=== PATIENT | female | born 1930 | race Caucasian/White ===

== ENCOUNTER → 2016-08-26 | Outpatient (CLI) | payer OTHER, BC ==
[~2016-08-26] MED LIST: AMLODIPINE BESY10 MG PO; AVALIDE 150-121 EACH PO; CALCIUM + VITA1 EACH PO; CELEBREX 200 M200 MG PO; COUMADIN 3 MG TA3 M1 PO; DIGOXIN125 MCG PO; FISH OIL 1,0001 EAC5 PO; FLECAINIDE ACE100 MG PO; FLECAINIDE ACET50 M2 PO; FOSAMAX 70 MG T70 MG PO; JANTOVEN3 MG PO; KEFLEX500 MG PO; LEVOTHROID50 MCG PO; LEVOTHYROXINE0.05 MG PO; LISINOPRIL10 MG PO; LISINOPRIL20 MG PO; LOVASTAT40 PO; MULTIVITAMINS PO; OXYBUTYNIN 5 MG5 M2 PO; PROTONIX40 M1 PO; VITCB500GO PO; VOLTAREN100 GM TP; ZOCOR 20 MG TAB20 M1 PO; [UNRECOGNIZED DRUG - OTHER] PO; [UNRECOGNIZED DRUG - OTHER] PO
== END ==
LOC: ULTRA 16:01
DX: I82.401 Acute embolism and thrombosis of unspecified deep veins of right lower extremity (principal); M79.89 Other specified soft tissue disorders; M79.604 Pain in right leg

== ENCOUNTER → 2016-11-11 | Outpatient (CLI) | payer OTHER, BC | LOC: MRI 14:30 | DX: M51.36 Other intervertebral disc degeneration, lumbar region (principal); M48.06 Spinal stenosis, lumbar region ==

== ENCOUNTER → 2016-11-26 | Outpatient (CLI) | payer OTHER, BC ==
[~2016-11-26] VITALS: Ht 167.6 cm; Wt 65.3 kg
[~2016-11-26] MED LIST changes: +ACETAMINOPHEN-1 EAC1 PO
--- NOTE | ~2016-11-26 | HPC ---
[facility] [address] [place] [address] PAIN MANAGEMENT CONSULTATION Name: AMELIA CHASE Room #: REG [facility] M..#: [id number] Admission: 11/26/16 Attend Phys: Nikko Jeffries DO Discharge: Date of : 31 Report #: [id number] THIS REPORT FOR: //name// CC: Nikko Feliciano MD DATE OF SERVICE: 11/26/2016 REFERRING PHYSICIAN: Jez Feliciano MD CHIEF COMPLAINT: Low back pain, bilateral lower extremity pain and paresthesias. HISTORY OF PRESENT ILLNESS: As you know, the patient is a very pleasant 86-year-old female who has been referred to our service for low back pain, bilateral lower extremity pain suspected to be due to spinal stenosis. The patient has followed with her primary care physician who has referred the patient to our clinic due to failure of responding to conservative medical therapy. The patient has been advised she is suffering from spinal stenosis and that the symptoms she is experiencing bilaterally may be due to this condition. She indicates today pain is periodic, intermittent, momentary, describes pain as shooting, pounding, sharp, stabbing and tender, places current pain score 10/10, daily average at 7-10/10, worst pain has been is 10/10. She indicates standing, walking and doing any activities exacerbate symptoms, sitting and repositioning as well as lying down tends to improve pain. She has been referred to our service to discuss treatment options for lumbar radiculopathy secondary to spinal stenosis. PAST MEDICAL HISTORY: 1. Hypertension. 2. Coronary artery disease. 3. Degenerative joint disease. 4. Osteoarthritis. 5. Chronic anticoagulation. 6. Gastroesophageal reflux disease. 7. Dyslipidemia. 8. Hypothyroidism. PAST SURGICAL HISTORY: None. SOCIAL HISTORY: The patient denies tobacco, alcohol, IV or illicit drug use. She is retired. She retired nearly 25 years ago. She is accompanied by her daughter who is present in room today. REVIEW OF SYSTEMS: Positive for weight gain, decrease in appetite, wearing [facility] [address] [place] [address] PAIN MANAGEMENT CONSULTATION Name: AMELIA CAHSE Room #: REG [facility]..#: [id number] Admission: 11/26/16 Attend Phys: Nikko Jeffries DO Discharge: Date of : 31 Report #: [id number] corrective eyewear, hearing loss with tinnitus, coronary artery disease, loss of appetite, frequent urination, incontinence and dribbling to urine, nocturia, varicose veins, thyroid disease, heat and cold intolerance, phlebitis, low back pain, and bilateral lower extremity pain. All other review of systems negative per 12-point review of systems other than those listed in history of present illness. PAIN IMPACT SCORE: 50/70 indicating severe interference of daily activities secondary to pain. ALLERGIES: No reported allergies. CURRENT MEDICATIONS: Flecainide 50 mg in the morning, 100 mg at night, pantoprazole 40 mg per day, lovastatin 40 mg per day, oxybutynin 5 mg once a day, calcium carbonate 1 tab per day, Avalide 100 mg once a day, and warfarin 3 mg once a day. IMAGING: MRI lumbar spine obtained on 11/11/2016, shows multilevel degenerative changes and disk space narrowing at L3 through L4-L5, tight spinal stenosis at both levels. There is noted facet arthropathy, ligamentum flavum hypertrophy and displaced disks throughout the lumbar region. PHYSICAL EXAMINATION: VITAL SIGNS: Blood pressure 192/100, pulse is 79, respiratory rate 14 and unlabored, the patient is 97% on room air, height 5 feet 6 inches tall, weight 144 pounds, and BMI calculated 23.3. GENERAL: Well-developed, well-nourished, well-hydrated 86-year-old female, appearing her stated age, she is placing current pain score at 10/10. HEENT: Normocephalic and atraumatic. Pupils are equal, round, and reactive to light. Extraocular muscles are intact. Sclerae are nonicteric without injection. Cranial nerves 2-12 are grossly intact. Speech is fluent. LUNGS: Clear. No wheeze, rhonchi, or rales. CARDIOVASCULAR: Regular. No appreciable gallop or rub. ABDOMEN: Soft, nontender, nondistended, normoactive bowel sounds. EXTREMITIES: Show no clubbing, no cyanosis, and no edema. MUSCULOSKELETAL: Lower extremity strength appears equal and symmetrical 5/5, intact to light touch from L1 through S2 dermatomes. Deep tendinous reflexes are symmetrical at patella and Achilles. Ankle clonus negative. Babinski is negative. Seated straight leg raising negative. Supine straight leg raising positive. Fabere's test negative. Modified Gaenslen's positive for axial low back pain. Gait antalgic, but not utilizing an assistive device. ASSESSMENT: 1. Symptomatic lumbar radiculopathy. 2. Severe spinal stenosis of lumbar spine. 3. Displacement of lumbar intervertebral disk with radiculopathy. [facility] [address] [place] [address] PAIN MANAGEMENT CONSULTATION Name: AMELIA CHASE Room #: REG CLJanny Fernandez#: [id number] Admission: 11/26/16 Attend Phys: Nikko Jeffries DO Discharge: Date of : 31 Report #: [id number] 4. Lumbosacral spondylosis with radiculopathy. 5. 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 6. Lumbar degeneration. 7. Chronic intractable pain. PLAN: 1. The patient has been referred to our clinic by her primary care physician for evaluation for a lumbar radiculopathy secondary to spinal stenosis. Given the findings on physical exam, the history she provides, the distribution of symptoms in bilateral nature as well as the findings on MRI , I do believe her symptoms are due to the tight spinal stenosis at the L3-L4 and L4-L5 levels. She does have contribution of axial back pain due to facet arthropathy, but this is a minor portion of the condition. We discussed with the patient treatment options in regards to spinal stenosis and subsequent lumbar radiculopathy. The following was discussed. The patient and I discussed treatment options that would include physical therapy, stretching exercises, and core strengthening. We discussed medication management with addition of a neuropathic pain medication and consistent pain medication for pain control. We discussed epidural injections under fluoroscopic guidance to address lumbar radicular symptoms. We also discussed spinal cord stimulator therapy and surgical options. After reviewing the risks and benefits of all proposed treatment options, the patient chose to undergo epidural injection under fluoroscopic guidance. The patient is on warfarin. She states she has been off the warfarin in appropriate 5 days. She has been off this medication and wishes to undergo the procedure. We did advise the patient to initiate the warfarin therapy again this afternoon and take her normal dosing starting tomorrow. She will remain on the warfarin until we see her back in followup visit in 3 weeks. 2. The patient was advised risks and benefits of a lumbar epidural injection. These risks include, but are not necessarily limited to bleeding, bruising, infection, worsening of pain, no relief of pain, also risk of temporary or permanent muscle weakness, temporary or permanent nerve damage, possible paralysis and . The patient states she understood and wished to proceed. 3. We will see the patient back in followup visit in 3 weeks. At that time, review efficacy of today's epidural injection and determine if a repeat injection might be necessary. 4. We wish to thank Dr. Feliciano for the referral of this patient to our clinic. We will keep you apprised of her response to treatment as we address her lumbar radicular symptoms secondary to spinal stenosis. Again, we wish to thank you for the opportunity to participate in her care. PROCEDURE NOTE DESCRIPTION OF PROCEDURE: L5-S1 interlaminar [place] [address] PAIN MANAGEMENT CONSULTATION Name: AMELIA CHASE Room #: REG NURY Fernandez#: [id number] Admission: 11/26/16 Attend Phys: Nikko Jeffries DO Discharge: Date of : 31 Report #: [id number] fluoroscopic guidance. This is the first procedure of the first series that the patient is undergoing. After obtaining written consent, the patient was taken back to the fluoroscopy suite, placed in a prone position with pillow under the abdomen to decrease lumbar lordosis. The skin overlying the lumbosacral area was then prepped and draped in aseptic fashion. The L5-S1 vertebral interspace was then identified by AP fluoroscopy. The skin and subcutaneous tissue overlying the target site of injection was anesthetized with 3 mL 1% lidocaine. A 20-gauge 3-1/2-inch Tuohy needle was then advanced under fluoroscopic guidance towards the epidural space using a paramedian approach. The epidural space was identified using loss of resistance to air technique. After negative aspiration for heme or cerebrospinal fluid, a total of 1 mL of Omnipaque was injected. A lumbar epidurogram was confirmed using both AP and lateral fluoroscopy. After negative aspiration for heme or cerebrospinal fluid, 5 mL of a solution containing 2 mL 40 mg per mL, 80 mg total triamcinolone, 3 mL lidocaine 1% was injected in increments. Contrast spread was noted posterior epidural space. The needle was then retracted approximately half way and needle tract flushed with 1 mL of 1% lidocaine. Needle was then removed. There were no apparent sensory or motor deficits in the lower extremity following the procedure. A sterile bandage was placed over the injection site. The heart rate, pulse, oximetry and blood pressure were continuously monitored after the procedure. There were no apparent complications. The patient tolerated the procedure well and was carefully escorted to the recovery room in stable condition. There were no apparent complications. After meeting discharge criteria, the patient was then discharged home. By: [id number] Nikko Jeffries DO /nt
[2016-11-26 13:32] LABS: INR 1.2
[2016-11-26 13:37] VITALS: BP 192/100
== END | disposition home or self-care (01) ==
LOC: PAIN 06:56
PROVIDERS: Anesthesiology Pain Medicine
DX: M51.16 Intervertebral disc disorders with radiculopathy, lumbar region (principal); M48.06 Spinal stenosis, lumbar region; M47.27 Other spondylosis with radiculopathy, lumbosacral region; M46.96 Unspecified inflammatory spondylopathy, lumbar region; G89.29 Other chronic pain; I10 Essential (primary) hypertension; I25.10 Atherosclerotic heart disease of native coronary artery without angina pectoris; M19.90 Unspecified osteoarthritis, unspecified site; K21.9 Gastro-esophageal reflux disease without esophagitis; E78.5 Hyperlipidemia, unspecified; E03.9 Hypothyroidism, unspecified; Z79.01 Long term (current) use of anticoagulants; Z79.899 Other long term (current) drug therapy

== ENCOUNTER → 2016-12-24 | Outpatient (CLI) | payer OTHER, BC ==
[~2016-12-24] VITALS: Ht 167.6 cm; Wt 63.9 kg
[~2016-12-24] MED LIST changes: +NEURONTIN 300300 M1 PO
--- NOTE | ~2016-12-24 | HPC ---
[facility] [place] [address] [address] PAIN MANAGEMENT CONSULTATION Name: AMELIA CHASE Room #: REG [facility] M..#: [id number] Admission: 12/24/16 Attend Phys: Nikko Jeffries DO Discharge: Date of : 31 Report #: [id number] THIS REPORT FOR: //name// CC: Nikko Feliciano MD DATE OF SERVICE: 12/24/2016 CHIEF COMPLAINT: Low back pain, bilateral lower extremity pain with paresthesias. HISTORY OF PRESENT ILLNESS: As you know, the patient is a very pleasant 86-year-old female who was referred to our service by Dr. Jez Feliciano for evaluation for suspected lumbar radiculopathy. The patient was seen in consultation per Dr. Feliciano's request on and diagnosed with symptomatic lumbar radiculopathy secondary to the displacement of lumbar intervertebral disk. Due to anticoagulation therapy, the patient had to return in followup visit to discuss other treatment options and to undergo epidural injection under fluoroscopic guidance once she had discontinued her warfarin. She returns today indicating she received not much in the way of improvement in symptoms. She continues to experience pain at a level of 10/10. She returns today in followup visit to discuss options for treatment. ALLERGIES: No reported drug allergies. CURRENT MEDICATIONS: Flecainide, pantoprazole, lovastatin, oxybutynin, calcium carbonate, Avalide, warfarin. SOCIAL HISTORY: The patient denies tobacco, alcohol, IV or illicit drug use. IMAGING: No new imaging available. PHYSICAL EXAMINATION: VITAL SIGNS: Blood pressure 155/75, pulse 72, respiratory rate 14, unlabored. The patient is 95% on room air, height 5 feet 6 inches tall, weight 140 pounds, BMI calculated 22.7. GENERAL: Well developed, well nourished, well-hydrated 86-year-old female appearing stated age. She is placing current pain score at 10/10. HEENT: Normocephalic, atraumatic. Pupils equal, round, reactive to light. Extraocular muscles are intact. Sclerae nonicteric without injection. EXTREMITIES: Show no clubbing, no cyanosis, no edema. MUSCULOSKELETAL: Seated straight leg raising negative. Supine straight leg raising positive. Fabere's test negative. Modified Gaenslen's positive for axial low back pain. Ankle clonus negative. Babinski is negative. [address] [address] PAIN MANAGEMENT CONSULTATION Name: AMELIA CHASE [facility] [id number] Admission: 12/24/16 Attend Phys: Nikko Jeffries DO Discharge: Date of : 31 Report #: [id number] ASSESSMENT: 1. Symptomatic lumbar radiculopathy. 2. Severe and progressively worsening spinal stenosis of lumbar spine. 3. Displacement of lumbar intervertebral disk with radiculopathy. 4. Lumbosacral spondylosis with radiculopathy. 5. Lumbar facet arthropathy. 6. Lumbar degeneration. 7. Chronic intractable pain. PLAN: 1. The patient returns today in followup visit having indicated no improvement in symptoms with epidural injection. We have the patient return today to discuss options for treatment. Given the fact the patient received no real significant long-term improvement with the epidural injection, I would not recommend a repeat at this time. I recommended other treatment options including medication management, spinal cord stimulator therapy and surgical options. After reviewing the risks and benefits of all the proposed treatment options, the patient chose to begin with medical therapy, but also consider a spinal cord stimulator. 2. The patient will be started on gabapentin 300 mg dose 1 tab p.o. at bedtime for 7 nights, then 2 tabs p.o. at bedtime for 7 nights, then 3 tabs p.o. at bedtime. I have given the patient #90 tablets. This is the first initial trial of medication. We may ultimately have to increase this in the daytime hours, but we will see efficacy at followup visit. 3. The patient was given information about spinal cord stimulator today. She will review the spinal cord stimulator information and determine if this is an option she wishes to pursue. The patient was advised if she does wish to pursue this option, she needs to see psychiatry as part of the initial workup. If she is able to pass the psychiatric evaluation without any known psychopathology, we would then have the patient move forward with scheduling of the spinal cord stimulator trial. If this is effective, then we will have the patient have permanent implant as quickly as possible. She will consider this as an option. She was given information both in digital and written form today, contact our clinic in regards to initiation of this treatment option. By: 1615 1805 Nikko Jeffries DO /gaaytri
[2016-12-24 10:23] VITALS: BP 155/75
== END | disposition home or self-care (01) ==
LOC: PAIN 12-17 07:30
DX: M51.16 Intervertebral disc disorders with radiculopathy, lumbar region (principal); M48.06 Spinal stenosis, lumbar region; M47.27 Other spondylosis with radiculopathy, lumbosacral region; M12.88 Other specific arthropathies, not elsewhere classified, other specified site; G89.29 Other chronic pain; Z79.899 Other long term (current) drug therapy; Z98.890 Other specified postprocedural states

== ENCOUNTER 2017-02-16 12:44 | Inpatient (IN) | payer OTHER, BC ==
[~2017-02-16] VITALS: Ht 167.6 cm; Wt 57.2 kg
--- NOTE | ~2017-02-16 | EKG ---
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 : 1930 Requested By: Jose Alberto Velasquez Order Number: [id number] MD: Abel Abel Measurements Intervals [place] Rate: 82 P: 75 [place]: 205 QRS: -80 QRSD: 128 T: 37 QT: 409 QTc: 478 Interpretive Statements Sinus rhythm RBBB and LAFB Compared to ECG 05/10/2015 17:19:58 No significant change was found Electronically Signed On 02-17-2017 16:20:19 CDT by Abel Abel [email or web address] <ELECTRONICALLY SIGNED> By: Abel Abel MD, [facility] 02/17/17 1620 1350 1350 Abel Abel MD, [facility] /EPI
--- NOTE | ~2017-02-16 | D ---
[facility] [place] [address] DISCHARGE SUMMARY Name: AMELIA CHASE Room #: 429-P [facility] IN M.R.#: [id number] Admission: 02/16/17 Attend Phys: Jez Feliciano MD Discharge: 02/21/17 Date of : 31 Report #: [id number] THIS REPORT FOR: //name// CC: Jez Feliciano DATE OF SERVICE: 02/19/2017 ADMITTING DIAGNOSES: Back pain and urinary tract infection. DISCHARGE DIAGNOSES: 1. Spinal stenosis with intractable back pain. 2. Urinary tract infection with Escherichia coli. 3. Weight loss, unexplained. 4. Back pain. 5. Falls. HOSPITAL COURSE: The patient was admitted after experiencing increasing back pain and unable to take care of herself at home. She was also found to have urinary tract infection. This UTI was found to be E. coli. She was started on Rocephin for that empirically and then that was continued once we identified the specific bacteria. It was sensitive to Rocephin. The patient did have a significant weight loss over the past several months, so therefore we undertook a CT scan of the chest, abdomen and pelvis, which did show some atelectasis in the lungs, some benign-looking liver cysts, benign-looking renal cyst. No evidence of any masses that could cause weight loss. She did have a small evidence of some ileus; however, she was eating and drinking and moving her bowels, so we did not opt to treat that. Her back pain did slightly improve with IV pain meds and switching to tizanidine. She had an outpatient appointment scheduled with Dr. Luciano for an epidural injection initially on the . She had been holding her Coumadin for that. We also gave her Lovenox in coverage while she was here. We were able to schedule her appointment with him for the . She was told after discharge to home, so we decided to discharge her to Dr. Luciano for epidural injection and then she will be discharged from there to [facility] for ongoing PT and OT. She will also get antibiotics, Cefdinir 300 mg b.i.d. for 7 more days. She will resume the home meds as listed in the chart otherwise. <ELECTRONICALLY SIGNED> By: Jez Feliciano MD 02/22/17 0843 [id number] 0834 Jez Feliciano MD /nt
--- NOTE | ~2017-02-16 | EKG ---
[address] [employer] 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
[2017-02-16 12:44] VITALS: BP 188/70
[~2017-02-16 12:44] MED LIST changes: -AVALIDE 150-121 EACH PO; +AVALIDE 300-121 EACH PO
[2017-02-16 13:04] LABS: HEMATOCRIT 43.9 % (37.0-47.0); HEMOGLOBIN 14.8 gm/dL (12.0-15.0); MCH 31.3 pg (26.0-34.0); MCHC 33.8 g/dL (28.0-37.0); MCV 92.6 fL (80.0-100.0); RBC 4.74 mil/uL (4.20-5.00); RDW 14.7 % (10.5-14.5); WBC 9.9 thou/uL (4.0-11.0)
[2017-02-16 13:07] LABS: CALCIUM 9.2 mg/dL (8.5-10.1); CREATININE 1.4 mg/dL (0.6-1.0); POTASSIUM 4.2 mmol/L (3.5-5.1)
[2017-02-16 13:15] LABS: INR 1.1; PROTIME 10.9 Seconds (9.3-11.4)
[2017-02-16 14:09] LABS: URINE BILIRUBIN NEGATIVE (Negative); URINE BLOOD NEGATIVE (Negative); URINE COLOR YELLOW; URINE GLUCOSE-RANDOM* NEGATIVE (Negative); URINE KETONES NEGATIVE (Negative); URINE LEUKOCYTES-REFLEX NEGATIVE (Negative); URINE PROTEIN (DIPSTICK) NEGATIVE (Negative); URINE SPECIFIC GRAVITY 1.015 (1.003-1.035); URINE UROBILINOGEN 0.2 E.U./dl (0.2-1.0)
[2017-02-16 14:46] LABS: CASTS None Seen /LPF (None Seen); CRYSTALS None Seen /LPF (None Seen); SQUAMOUS 0-3 Few /LPF (0-3); URINE RBC None Seen /HPF (0-2); URINE WBC-REFLEX 0-5 Rare /HPF (0-5)
[2017-02-16 15:28] VITALS: BP 162/77
[2017-02-16 15:47] VITALS: BP 168/72
[2017-02-16 17:31] VITALS: BP 145/61
[2017-02-16 19:14] VITALS: BP 127/52
[2017-02-17 03:44] VITALS: BP 111/61
[2017-02-17 07:40] VITALS: BP 169/63
[2017-02-17 14:53] LABS: PROTIME 10.6 Seconds (9.3-11.4)
[2017-02-17 15:30] VITALS: BP 119/50
[2017-02-17 19:10] VITALS: BP 129/54
[2017-02-18 04:30] VITALS: BP 145/55
[2017-02-18 07:12] VITALS: BP 176/61
[2017-02-18 11:41] VITALS: BP 111/46
[2017-02-18 15:39] VITALS: BP 108/50
[2017-02-18 20:00] VITALS: BP 100/40
[2017-02-19] VITALS (7 sets, daily range): BP systolic 71–165; BP diastolic 32–63
[2017-02-19] MEDS ORDERED: TIZANIDINE4 MG/1 TA1 PO (07:45)
[2017-02-19] MEDS ORDERED: COLACE 100 MG100 MG PO (07:46)
[2017-02-19] MEDS ORDERED: ACETAMINOPHEN-1 EAC1 PO (07:47)
[2017-02-19] MEDS ORDERED: MIRALAX17 GM PO (07:47)
[2017-02-19] MEDS ORDERED: CEFDINIR300 MG PO (07:53)
[2017-02-19 10:04] LABS: HEMATOCRIT 37.8 % (37.0-47.0); MCH 31.2 pg (26.0-34.0); MCHC 33.5 g/dL (28.0-37.0); MCV 93.1 fL (80.0-100.0); RBC 4.06 mil/uL (4.20-5.00); RDW 14.7 % (10.5-14.5); WBC 7.7 thou/uL (4.0-11.0)
[2017-02-19 10:25] LABS: HEMOGLOBIN 12.6 gm/dL (12.0-15.0)
[2017-02-20 04:00] VITALS: BP 167/76
[2017-02-20] MEDS ORDERED: ACETAMINOPHEN-1 EAC1 PO (08:02)
[2017-02-20 08:10] VITALS: BP 128/49
[2017-02-20 15:20] VITALS: BP 110/50
[2017-02-20 20:31] VITALS: BP 157/87
[2017-02-21 04:19] VITALS: BP 147/59
[2017-02-21 07:40] VITALS: BP 177/74
[2017-02-21] MEDS ORDERED: ENOXAPARIN60 MG/0.1 SUBQ (07:55)
[2017-02-21] MEDS ORDERED: FLECAINIDE ACET50 M1 PO (12:36)
== END 2017-02-21 14:39 | DRG 552 ==
LOC: ER 12:44 → EROBS 15:02 → 4N 15:02 → 4E 15:02 → 4N 15:55 → 4E 02-19 13:02
PROVIDERS: Emergency Medicine; Family Medicine
DX: M48.00 Spinal stenosis, site unspecified (principal); N39.0 Urinary tract infection, site not specified; I10 Essential (primary) hypertension; M19.90 Unspecified osteoarthritis, unspecified site; E78.00 Pure hypercholesterolemia, unspecified; I48.2 Chronic atrial fibrillation; E03.9 Hypothyroidism, unspecified; K59.00 Constipation, unspecified; R00.1 Bradycardia, unspecified; W18.30XA Fall on same level, unspecified, initial encounter; R63.4 Abnormal weight loss; B96.20 Unspecified Escherichia coli [E. coli] as the cause of diseases classified elsewhere; Z86.718 Personal history of other venous thrombosis and embolism; Y93.89 Activity, other specified; Z68.20 Body mass index [BMI] 20.0-20.9, adult; Z79.01 Long term (current) use of anticoagulants; Y92.89 Other specified places as the place of occurrence of the external cause; Y99.8 Other external cause status; Z79.899 Other long term (current) drug therapy; I95.89 Other hypotension
CPT/HCPCS: 10091; 10183

== ENCOUNTER → 2018-01-13 | Outpatient (CLI) | payer OTHER, BC ==
[~2018-01-13] VITALS: Ht 167.6 cm; Wt 63.1 kg
[~2018-01-13] MED LIST changes: +BENICAR20 MG PO; +CALCIUM 600 +1 EAC6 PO; +CEFDINIR300 MG PO; +COLACE 100 MG100 MG PO; +ENOXAPARIN60 MG/0.1 SUBQ; +FLECAINIDE ACET50 M1 PO; +HYDROCHLOROTHIA25 M2 PO; +MIRALAX17 GM PO; +SYNTHROID50 MCG PO; +TIZANIDINE4 MG/1 TA1 PO; +XARELTO15 MG PO
--- NOTE | ~2018-01-13 | HPC ---
[facility] [address] [place] [address] PAIN MANAGEMENT CONSULTATION Name: AMELIA CHASE Room #: REG [facility]..#: [id number] Admission: 01/13/18 Attend Phys: Nikko Jeffries DO Discharge: Date of : 31 Report #: [id number] THIS REPORT FOR: //name// CC: Nikko Feliciano MD DATE OF SERVICE: 01/13/2018 REFERRING PHYSICIAN: Jez Feliciano MD CHIEF COMPLAINT: Low back pain, bilateral lower extremity pain with paresthesias. HISTORY OF PRESENT ILLNESS: As you know, the patient is an 87-year-old female referred to our service by Dr. Jez Feliciano for evaluation for suspected lumbar radiculopathy. The patient was seen in consultation per the request of Dr. Feliciano and diagnosed with lumbar radicular symptoms secondary to progressively worsening spinal stenosis. The patient's spinal stenosis is severe, near critical in nature, it is caused by a combination of disk protrusions and facet changes in the lumbar spine. She has undergone one epidural injection under fluoroscopic guidance with good efficacy. She wishes to discuss the possibility of undergoing next in the series of epidural injections and to discuss other options for treatment if there are possible alternatives. She denies any new injury, new trauma, or any changes in medical history since our last visit. ALLERGIES: No known drug allergies. CURRENT MEDICATIONS: Flecainide, pantoprazole, lovastatin, oxybutynin, calcium carbonate, Avalide, and warfarin (held 5 days). SOCIAL HISTORY: The patient denies tobacco, alcohol, IV or illicit drug use. IMAGING: There is no new imaging available. PQRS: The patient has osteoarthritis of the neck, low back, bilateral hips, and bilateral knees. She does not have a diagnosis of rheumatoid arthritis. She is a fall risk, but has not had a fall in the last 3 months. She is on blood thinners and has discontinued in preparation for today's procedure. She is treated for hypertension. She is not on opioids. She is a low risk for opioid abuse. Her functional assessment pain impact score 51/70, severe. PHYSICAL EXAMINATION: VITAL SIGNS: Blood pressure 136/74, pulse 103, respiratory rate 16 and unlabored, the patient is 100% on room air, height 5 feet 6 inches tall, weight 139.2 pounds, and BMI calculated 22.5. [address] [address] PAIN MANAGEMENT CONSULTATION Name: AMELIA CHASE Room #: REG [facility]#: [id number] Admission: 01/13/18 Attend Phys: Nikko Jeffries DO Discharge: Date of : 31 Report #: [id number] GENERAL: Well-developed, well-nourished, well-hydrated 87-year-old female, appearing her stated age, she is placing pain score today at around 10/10. HEENT: Normocephalic, atraumatic. Pupils are equal, round, and reactive to light. EXTREMITIES: Show no clubbing, no cyanosis, and no edema. MUSCULOSKELETAL: Lower extremity strength is symmetrical, deconditioning noted bilaterally. Seated straight leg raising negative. Supine straight leg raising positive. Lindy test negative. Modified Gaenslen's positive for axial low back pain. ASSESSMENT: 1. Symptomatic lumbar radiculopathy. 2. Severe and progressively worsening spinal stenosis of lumbar spine. 3. Displacement of lumbar intervertebral disk with radiculopathy. 4. Lumbosacral spondylosis with radiculopathy. 5. Facet arthropathy of the lumbar spine. 6. Lumbar degeneration. 7. Chronic intractable pain. PLAN: 1. The patient returns today in followup visit where we had a very long discussion with the patient and her daughter today about potential treatment options if epidural injections are ineffective for long-term therapy. We discussed the possibility of medication management, though she is not an optimal candidate for medication management given her underlying cognition issues and her potential for fall risk. We did discuss with the patient the possibility of utilizing epidural injections every 2 months to maintain analgesic benefit. We discussed a spinal cord stimulator therapy, which might provide the patient some temporary improvement, though long-term efficacy would not be noted with the device. We also discussed the surgical option, though she is not an optimal candidate, she does have progressively worsening near critical spinal stenosis, which may ultimately need decompression. She will consider these options. Today, she has chosen to continue with epidural injection. 2. The patient was advised risks and benefits of a lumbar epidural injection, these risks include, but are not necessarily limited to bleeding, bruising, infection, worsening of pain, no relief of pain, also risk of temporary or permanent muscle weakness, temporary or permanent nerve damage, possible paralysis and . The patient states understood and wished to proceed. 3. No medication changes were made at today's visit. The patient to continue current medical therapy as previously prescribed. 4. We will see the patient back in followup visit on an as needed basis for the third and final in series of epidural injections. PROCEDURE NOTE DESCRIPTION OF PROCEDURE: L5-S1 paramedian epidural steroid injection under [facility] [address] [place] [address] PAIN MANAGEMENT CONSULTATION Name: AMELIA CHASE Room #: REG [facility]#: [id number] Admission: 01/13/18 Attend Phys: Nikko Jeffries DO Discharge: Date of : 31 Report #: [id number] fluoroscopic guidance. This is the second procedure of the first series that the patient is undergoing. After obtaining written consent, the patient was taken back to the fluoroscopy suite, placed in a prone position with pillow under the abdomen to decrease lumbar lordosis. The skin overlying the lumbosacral area was then prepped and draped in aseptic fashion. The L5-S1 vertebral interspace was then identified by AP fluoroscopy. The skin and subcutaneous tissue overlying the target site of injection was anesthetized with 3 mL 1% lidocaine. A 20-gauge 3-1/2-inch Tuohy needle was then advanced under fluoroscopic guidance towards the epidural space using a paramedian approach. The epidural space was identified using loss of resistance to air technique. After negative aspiration for heme or cerebrospinal fluid, a total of 1 mL of Omnipaque was injected. A lumbar epidurogram was confirmed using both AP and lateral fluoroscopy. After negative aspiration for heme or cerebrospinal fluid, 5 mL of a solution containing 2 mL 40 mg per mL, 80 mg total triamcinolone, 3 mL lidocaine 1% was injected in increments. Contrast spread was noted posterior epidural space. The needle was then retracted approximately half way and needle tract flushed with 1 mL of 1% lidocaine. Needle was then removed. There were no apparent sensory or motor deficits in the lower extremity following the procedure. A sterile bandage was placed over the injection site. The heart rate, pulse, oximetry and blood pressure were continuously monitored after the procedure. There were no apparent complications. The patient tolerated the procedure well and was carefully escorted to the recovery room in stable condition. There were no apparent complications. After meeting discharge criteria, the patient was then discharged home. By: [id number] Nikko Jeffries DO /nt
[2018-01-13 13:02] VITALS: BP 136/74
== END | disposition home or self-care (01) ==
LOC: PAIN 07:08
DX: M51.16 Intervertebral disc disorders with radiculopathy, lumbar region (principal); M48.061 Spinal stenosis, lumbar region without neurogenic claudication; M47.27 Other spondylosis with radiculopathy, lumbosacral region; M46.96 Unspecified inflammatory spondylopathy, lumbar region; G89.29 Other chronic pain; Z79.899 Other long term (current) drug therapy; Z98.890 Other specified postprocedural states; Z87.440 Personal history of urinary (tract) infections

== ENCOUNTER → 2018-03-02 | Outpatient (CLI) | payer OTHER, BC | LOC: MRI 10:30 | DX: S22.080A Wedge compression fracture of T11-T12 vertebra, initial encounter for closed fracture (principal); M48.061 Spinal stenosis, lumbar region without neurogenic claudication; X58.XXXA Exposure to other specified factors, initial encounter; Y93.89 Activity, other specified; Y92.89 Other specified places as the place of occurrence of the external cause; Y99.8 Other external cause status ==